=== PATIENT | male | born 1940 | race Caucasian/White ===

== ENCOUNTER 2019-03-01 08:15 | Day surgery (SDC) | payer MEDICARE, BC ==
[~2019-03-01] VITALS: Ht 182.9 cm; Wt 92.4 kg
[2019-03-01] VITALS (8 sets, daily range): BP systolic 105–150; BP diastolic 60–92
[2019-03-01] MEDS ORDERED: cefazolin/dext.iso 2gm/100ml 100 ML IV ONE (08:43)
[2019-03-01] MEDS ORDERED: normal saline 1000ml 1,000 ML IV SCH (08:45)
[2019-03-01 09:12] LABS: BASOPHILS # (AUTO) 0.1 X10'3 (0-0.2); BASOPHILS % (AUTO) 1.3 % (0-1); EOSINOPHILS # (AUTO) 0.1 X10'3 (0-0.9); HEMATOCRIT 41.1 % (42.0-52.0); HEMOGLOBIN 14.1 g/dl (14.0-17.9); LYMPHOCYTES # (AUTO) 1.1 X10'3 (1.1-4.8); LYMPHOCYTES % (AUTO) 17.9 % (21-51); MEAN CORPUSCULAR HEMOGLOBIN 30.2 PG (27.0-31.0); MEAN CORPUSCULAR HGB CONC 34.3 g/dL (33.0-36.5); MEAN PLATELET VOLUME 8.1 FL (7.4-10.4); MONOCYTES # (AUTO) 0.6 X10'3 (0-0.9); MONOCYTES % (AUTO) 10.1 % (2-12); NEUTROPHILS # (AUTO) 4.3 X10'3 (1.8-7.7); NEUTROPHILS % (AUTO) 68.7 % (42-75); PLATELET COUNT 283 X10'3 (140-440); RED BLOOD COUNT 4.67 X10'6 (4.70-6.10); RED CELL DISTRIBUTION WIDTH 13.7 % (11.5-14.5); WHITE BLOOD COUNT 6.3 X10'3 (4.5-11.0)
[2019-03-01 09:20] LABS: ALBUMIN 3.1 G/DL (3.4-5.0); ANION GAP 10 (8-16); BLOOD UREA NITROGEN 14 MG/DL (7-18); BUN/CREATININE RATIO 17.5 (5.4-32.0); CHLORIDE 106 MMOL/L (99-107); GLUCOSE 112 MG/DL (70-104); POTASSIUM 3.9 MMOL/L (3.5-5.1); SODIUM 140 MMOL/L (135-145); TOTAL CARBON DIOXIDE 24.3 MMOL/L (24-32); eGFR > 90 ML/MIN
[2019-03-01] MEDS ORDERED: ATOR20TA PO (09:43)
[2019-03-01] MEDS ORDERED: METF500T PO (09:43)
[2019-03-01] MEDS ORDERED: FLUO20CA22 PO (09:43)
[2019-03-01] MEDS ORDERED: ASPI-1264 PO (09:43)
[2019-03-01] MEDS ORDERED: OMEP-271 PO (09:43)
[2019-03-01] MEDS ORDERED: glucagon, human recombinant 1mg kit ONE (10:17)
[2019-03-01] MEDS ORDERED: LIDOcaine 1%/PF 5ML 10 MG/ML VIAL ONE (10:17)
[2019-03-01] MEDS ORDERED: fentaNYL/PF 50MCG/1 ML 2ML syringe ONE (10:18)
[2019-03-01] MEDS ORDERED: midazolam 2 mg/2 ml injection ONE (10:18)
[2019-03-01] MEDS ORDERED: iohexol 300 MG/1 ML 50ml polymer ONE (10:19)
[2019-03-01] MEDS ORDERED: fentaNYL/PF 50MCG/1 ML 2ML syringe IV PRN (10:25)
[2019-03-01] MEDS ORDERED: midazolam 2 mg/2 ml injection IV PRN (10:25)
[2019-03-01] MEDS ORDERED: glucagon, human recombinant 1mg kit IV ONE (10:25)
[2019-03-01] MEDS ORDERED: LIDOcaine 1%/PF 5ML 10 MG/ML VIAL SQ ONE (10:25)
== END 2019-03-01 14:10 | disposition home or self-care (01) ==
LOC: SSTAY O 08:15
PROVIDERS: ATTEND Radiology Diagnostic Radiology
DX: C02.9 Malignant neoplasm of tongue, unspecified (principal)
CPT/HCPCS: 36415; 49440; 80048; 82948; 85025; 99152; 99153; J0690; J1610; J2001; J2250; J3010; J7030; Q9967; C1729

== ENCOUNTER 2019-07-27 13:43 | Outpatient (CLI) | payer MEDICARE, BC ==
[~2019-07-27 13:43] MED LIST: ASPI-1264 PO; ATOR20TA PO; FLUO20CA22 PO; METF500T PO; OMEP-271 PO; ONDA8TAB6 PO
== END 2019-07-27 23:59 | disposition home or self-care (01) ==
LOC: RAD 13:43
PROVIDERS: ATTEND Radiology Radiation Oncology
DX: R13.12 Dysphagia, oropharyngeal phase (principal); C01 Malignant neoplasm of base of tongue; R49.0 Dysphonia; Z85.89 Personal history of malignant neoplasm of other organs and systems; Z87.891 Personal history of nicotine dependence
CPT/HCPCS: 74230

== ENCOUNTER 2023-04-04 10:32 | Emergency (ER) | payer MEDICARE, BC ==
[~2023-04-04] VITALS: Ht 182.9 cm; Wt 71.2 kg
[~2023-04-04 10:32] MED LIST changes: -ASPI-1264 PO; -ATOR20TA PO; +ATOR20TA66 PO; +CHLO473M2 PO; +FLUO-100 PO; +FLUO100P17 MC; -FLUO20CA22 PO; +LEVO50TA66 PO; -METF500T PO; -OMEP-271 PO; -ONDA8TAB6 PO
[2023-04-04 11:39] LABS: BASOPHILS # (AUTO) 0.1 X10'3 (0-0.2); BASOPHILS % (AUTO) 1.3 % (0-1); EOSINOPHILS # (AUTO) 0.2 X10'3 (0-0.9); EOSINOPHILS % (AUTO) 2.6 % (0-6); HEMATOCRIT 42.9 % (42.0-52.0); LYMPHOCYTES # (AUTO) 0.5 X10'3 (1.1-4.8); LYMPHOCYTES % (AUTO) 8.8 % (21-51); MEAN CORPUSCULAR HEMOGLOBIN 29.2 PG (27.0-31.0); MEAN CORPUSCULAR HGB CONC 32.5 g/dL (33.0-36.5); MEAN CORPUSCULAR VOLUME 89.7 FL (78-98); MEAN PLATELET VOLUME 8.1 FL (7.4-10.4); MONOCYTES # (AUTO) 0.5 X10'3 (0-0.9); MONOCYTES % (AUTO) 9.1 % (2-12); NEUTROPHILS # (AUTO) 4.8 X10'3 (1.8-7.7); NEUTROPHILS % (AUTO) 78.2 % (42-75); PLATELET COUNT 280 X10'3 (140-440); RED BLOOD COUNT 4.78 X10'6 (4.70-6.10); RED CELL DISTRIBUTION WIDTH 15.3 % (11.5-14.5); WHITE BLOOD COUNT 6.1 X10'3 (4.5-11.0)
[2023-04-04 11:48] LABS: ALANINE AMINOTRANSFERASE 15 U/L (12-78); ALBUMIN 4.5 G/DL (3.4-5.0); ALBUMIN/GLOBULIN RATIO 1.4 (1.1-1.5); ALKALINE PHOSPHATASE 105 IU/L (46-116); ANION GAP 6 (8-16); ASPARTATE AMINO TRANSFERASE 17 U/L (10-37); BILIRUBIN,TOTAL 0.9 MG/DL (0.1-1.0); BLOOD UREA NITROGEN 22 MG/DL (7-18); BUN/CREATININE RATIO 21.6 (10.0-20.0); CALCIUM 8.6 MG/DL (8.5-10.1); CHLORIDE 103 MMOL/L (99-107); CREATININE 1.02 MG/DL (0.60-1.10); GLUCOSE 99 MG/DL (70-104); LIPASE 179 U/L (73-393); POTASSIUM 3.9 MMOL/L (3.5-5.1); SODIUM 140 MMOL/L (135-145); TOTAL CARBON DIOXIDE 30.9 MMOL/L (24-32); TOTAL PROTEIN 7.7 G/DL (6.4-8.2); eGFR 70 ML/MIN
[2023-04-04] MEDS ORDERED: PANT20TA18 PO (14:46)
[2023-04-04] MEDS ORDERED: pantoprazole 40mg Tablet.DR PO ONE (14:50)
[2023-04-04 15:01] VITALS: BP 126/77
--- NOTE | 2023-04-04 15:05 | NUR ---
PER JUDE Jennings NO NEED TO COLLECT URINE FOR PT PRIOR TO DC.
[2023-04-04 15:43] LABS: OCCULT BLOOD STOOL POSITIVE (Neg)
== END 2023-04-04 15:07 | disposition home or self-care (01) ==
LOC: ER 10:33
DX: K92.2 Gastrointestinal hemorrhage, unspecified (principal); R05.9 Cough, unspecified; Z88.1 Allergy status to other antibiotic agents; Z88.2 Allergy status to sulfonamides
CPT/HCPCS: 36415; 80053; 82272; 83690; 85025; 99284

== ENCOUNTER 2025-05-20 15:53 | Emergency (ER) | payer BC, MEDICARE ==
[~2025-05-20] VITALS: Ht 182.9 cm; Wt 77.3 kg
[~2025-05-20 15:53] MED LIST changes: +PANT20TA18 PO
[2025-05-20 15:57] VITALS: TEMP 97.9
--- NOTE | 2025-05-20 16:14 | ELECTROCARDIOGRAPH REPORT ---
[facility] Test Date: 2025-05-20 Test Time: 16:12:28 Pat Name: KEATON STEWARD Department: EMERGENCY ROOM Room: Gender: M Content Administrator: : [id number] Requested By: GERI JESUS Order Number: [id number] Reading MD: Measurements Intervals [place] Rate: 79 P: 74 WI: 176 QRS: 192 QRSD: 140 T: 20 QT: 416 QTc: 477 Interpretive Statements Sinus rhythm Nonspecific intraventricular conduction delay Anterolateral infarct, age indeterminate Please click the below link to view image of tracing.
--- NOTE | 2025-05-20 16:24 | Physician Documentation ---
History of Present Illness ~ Chief Complaint: Bloody Stools Stated Complaint: BLOODY STOOLS Time Seen by MD: 16:03 Source: patient Mode of Arrival: EMS, Stretcher Exam Limitations: no limitations HPI 85-year-old male with complaints of dizziness near-syncope and 2 black tarry stools starting today. Patient states that he has history of a GI bleed which was a lower GI bleed approximately 1 year ago he was told he had diverticulitis. He did end up having a colonoscopy at that time. Patient states that his stools today are watery black tarry stools. Patient states when he stands up he feels like he is going to pass out. Patient is on Plavix. Patient denies any abdominal pain, nausea, or vomiting. Medication Reconciliation Allergies: Coded Allergies: bacitracin (Verified Allergy, Unknown, 05/20/25) neomycin (Verified Allergy, Unknown, 03/01/19) polymyxin B (Verified Allergy, Unknown, 03/01/19) Uncoded Allergies: NEOSPORIN (Allergy, Unknown, 05/31/19) Scheduled Atorvastatin Calcium (Atorvastatin Calcium), 1 TAB PO DAILY, (Reported) Chlorhexidine Gluconate (Chlorhexidine Gluconate), 15 ML PO BID, (Reported) Fluoride (Sodium) (Sodium Fluoride), 1 APPLIC MC DAILY, (Reported) Fluoxetine Hcl (Fluoxetine Hcl), 1 CAP PO DAILY, (Reported) Levothyroxine Sodium (Levoxyl), 1 TAB PO DAILY, (Reported) Pantoprazole Sodium (Protonix), 1 TAB PO DAILY Past Medical History Past Medical History: Coronary Artery Disease, Diverticulosis, GI Bleed Past Surgical History: angioplasty Lives with: Spouse Lives In: Home Occupation: retired Review of Systems All Other Systems at this time: Reviewed and Negative Gastrointestinal: Reports: see HPI Physical Exam Vital Signs: RN Vital Signs have been reviewed: Yes, Temperature: 97.9, Source: Oral, Heart Rate: 81, Respiratory Rate: 17, BP: 115/63, Pulse Oximetry: 100, Weight: 77.270 Oxygen Flow Rate: 0 General Appearance: alert, WD/WN, no apparent distress EENT: PERRL/EOMI, normal ENT inspection, moist mucous membranes Respiratory: lungs clear, normal breath sounds Chest: no accessory muscle use Cardiology Exam: regular rate, rhythm Gastrointestinal: normal palpation, non-tender, bowels sounds present Neurologic: oriented x4 Psychiatric: normal mood/affect Skin: diaphoresis, pallor Progress Results/Orders Results/Orders Orders - 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 W/Pantoprazole 40 (05/20/25 16:55) Pantoprazole 40mg Iv (Protonix 40mg Iv) (05/20/25 17:00) Hemogram (05/20/25 18:25) Medications Received in ER Medications (Trade) Dose Ordered Sig/Denise Route PRN Reason Start Time Stop Time Status Last Admin Dose Admin (Protonix 40mg IV) 80 mg ONCE ONCE IV 05/20/25 17:00 05/20/25 17:01 DC 05/20/25 17:36 80 MG Vital Signs 05/20/25 05/20/25 05/20/25 05/20/25 15:57 16:05 16:32 17:30 Temp 97.9 Pulse 81 82 83 Resp 16 17 14 12 B/P (MAP) 115/63 108/64 (79) 102/62 (75) Pulse Ox 100 100 100 O2 Flow Rate 0 0 0 05/20/25 05/20/25 18:19 18:20 Pulse 82 Resp 10 12 B/P (MAP) 106/64 (78) Pulse Ox 99 Laboratory Tests Test 05/20/25 16:21 05/20/25 18:36 White Blood Count 9.9 17.6 H Red Blood Count 4.37 L 4.48 L Hemoglobin 11.1 L 11.3 L Hematocrit 34.5 L 35.3 L Mean Corpuscular Volume 78.9 78.7 Mean Corpuscular Hemoglobin 25.4 L 25.1 L Mean Corpuscular Hemoglobin Concent 32.2 L 31.9 L Red Cell Distribution Width 19.5 H 19.9 H Platelet Count 249 266 Mean Platelet Volume 8.1 8.2 Neutrophils (%) (Auto) 82.6 H Lymphocytes (%) (Auto) 7.3 L Monocytes (%) (Auto) 8.0 Eosinophils (%) (Auto) 1.1 Basophils (%) (Auto) 1.0 Neutrophils # (Auto) 8.2 H Lymphocytes # (Auto) 0.7 L Monocytes # (Auto) 0.8 Eosinophils # (Auto) 0.1 Basophils # (Auto) 0.1 CBC Comment Prothrombin Time 11.4 INR International Normalized Ratio 1.1 Activated Partial Thromboplast Time 22 Coagulation Comments Sodium Level 141 Potassium Level 4.4 Chloride Level 107 Carbon Dioxide Level 24.5 Anion Gap 10 Blood Urea Nitrogen 46 H Creatinine 0.97 Estimated GFR/1.73 m2 74 BUN/Creatinine Ratio 47.4 H Glucose Level 160 H Calcium Level 7.4 L Albumin 3.1 L Chemistry Comments Hematology Comments EKG/XRAY/CT/US/VASC/MRI Chest X-Ray : Additional Comments EXAM: DI CHEST,SINGLE VIEW Indication: Hypotension Technique: Single frontal view of the chest was obtained Comparison: CHEST,SINGLE VIEW on DOS: 07/10/22, CHEST,SINGLE VIEW on DOS: 07/08/22 FINDINGS: Lines and Tubes: None Lungs: Left basilar opacity. Pleura: Trace left pleural effusion. No pneumothorax. Cardiomediastinal contours: Cardiomegaly. Bones: No acute osseous abnormality. IMPRESSION: Cardiomegaly with left basilar opacity and trace left pleural effusion. Medical Decision Making Findings History of lower GI bleed diverticulosis having black tarry stools with dif ferentials being an upper GI bleed. Patient is on baby aspirin and Plavix. Patient is diaphoretic, slightly pale vital signs are reassuring. This started today two episodes patient's blood work initially with H&H was 11 and 34 some signs of chronic anemia patient has had no episodes of diarrhea or dizziness near syncope since being picked up by EMS. Second hemogram shows improved H&H but increased WBCs from 07/04/2017. Patient received a L of fluid per EMS and the rest upon arrival as well as Protonix. Patient's abdominal exam was unremarkable no pain soft and good bowel sounds. Patient does have history of having diverticulitis and states it no pain or symptoms associated with diverticulitis. Gait test past patient feels so much better. Discussed with attending and agrees upon discharge with instructions to have repeat labs in 1 week Departure Time of Disposition: 19:20 Disposition: HOME / SELF CARE / HOMELESS Impression: Primary Impression: Anemia Additional Impressions: Occult blood positive stool Dizziness Condition: Stable Discharge Instructions: Bloody Diarrhea Additional Instructions: With blood in your stool it is advised to follow up this week with your primary care provider for referral to Gastroenterology for further follow up and workup. Your hemoglobin and hematocrit were stable but advise to have another set of labs this week. Monitor for any abdominal pain or fevers and feel free to return to the ER. Start omeprazole which is a medication for your stomach and potentially helping with acid reflux or ulcers. Stop the Plavix until you speak to your provider due to the blood found in your stool. Monitor stool closely. Referrals: NO PRIMARY CARE PROVIDER (PCP) Prescriptions Omeprazole (Prilosec) 40 Mg Capsule 1 CAP PO DAILY for 30 Days, #30 CAP Prov: RADHA JESUS NP 05/20/25 Education Educated: Patient, Family Educated regarding: diagnosis, treatment, need for follow up Signature Scribe Signature: No scribe Attestation: The note accurately reflects work and decisions made by me.Radha KELLY 05/20/25 16:23 RADHA JESUS NP May 20, 2025 16:24
[2025-05-20 16:30] LABS: MEAN PLATELET VOLUME 8.1 FL (7.4-10.4); RED CELL DISTRIBUTION WIDTH 19.5 % (11.5-14.5)
--- NOTE | 2025-05-20 16:35 | RADIOLOGY REPORT ---
EXAM: DI CHEST,SINGLE VIEW Indication: Hypotension Technique: Single frontal view of the chest was obtained Comparison: CHEST,SINGLE VIEW on DOS: 07/10/22, CHEST,SINGLE VIEW on DOS: 07/08/22 FINDINGS: Lines and Tubes: None Lungs: Left basilar opacity. Pleura: Trace left pleural effusion. No pneumothorax. Cardiomediastinal contours: Cardiomegaly. Bones: No acute osseous abnormality. IMPRESSION: Cardiomegaly with left basilar opacity and trace left pleural effusion.
[2025-05-20 16:40] LABS: CREATININE 0.97 MG/DL (0.60-1.10); TOTAL CARBON DIOXIDE 24.5 MMOL/L (24-32); eCRCL 62 ML/MIN; eGFR 74 ML/MIN
[2025-05-20 16:45] LABS: APTT 22 SECONDS (22-32); INR 1.1 INR
[2025-05-20] MEDS ORDERED: pantoprazole 40mg IV 80 MG in normal saline 100ml IV soln 100 ML IV ONE (16:55)
[2025-05-20 19:05] LABS: MEAN PLATELET VOLUME 8.2 FL (7.4-10.4); RED CELL DISTRIBUTION WIDTH 19.9 % (11.5-14.5)
[2025-05-20] MEDS ORDERED: OMEP40CA21 PO (19:21)
[2025-05-20 19:35] VITALS: BP 104/68; PULSE 80; RESP 14; O2SAT 99
== END 2025-05-20 19:39 | disposition home or self-care (01) ==
LOC: ER 15:54
DX: D64.9 Anemia, unspecified (principal); I25.10 Atherosclerotic heart disease of native coronary artery without angina pectoris; R42 Dizziness and giddiness
CPT/HCPCS: 36415; 71045; 80048; 85025; 85027; 85610; 85730; 86885; 86900; 86901; 93005; 96374; 99285; J2470